=== PATIENT | female | born 1940 | race Hispanic/Latino ===

== ENCOUNTER 2021-05-02 00:25 | Emergency (ER) | payer MEDICARE ==
[2021-05-02] MEDS ORDERED: HYDROcodone/ACETAMINOPHEN 5-325 MG TAB PO ONE ×2 (01:06→02:36)
[2021-05-02] MEDS ORDERED: ONDANSETRON 4 MG ODT TAB PO ONE (01:06)
--- NOTE | 2021-05-02 01:45 | XRay Report ---
Right knee radiograph, 4 views HISTORY: Pain after fall COMPARISON: None FINDINGS: Right total knee arthroplasty projects in expected position. There is no evidence of hardwa re complication. No acute fracture or significant joint capsular distention. Signer Name: Vel Macias MD Signed: 05/02/2021 1:40 AM Workstation Name: [id number]
--- NOTE | 2021-05-02 01:46 | XRay Report ---
Left forearm radiograph, 3 views HISTORY: Pain after fall COMPARISON: None FINDINGS: There is an acute impacted fracture of the radial neck with left elbow joint capsular diste ntion, compatible with hemarthrosis. No additional fracture. Soft tissues are unremarkable. IMPRESSION: Acute left radial neck fracture. Signer Name: Vel Macias MD Signed: 05/02/2021 1:42 AM Workstation Name: [id number]
--- NOTE | 2021-05-02 01:59 | Emergency Department Report ---
ED Fall HPI - General Chief Complaint: Fall Stated Complaint: RT KNEE INJURY Time Seen by Provider: 05/02/21 00:43 Source: patient, EMS Mode of arrival: Stretcher - History of Present Illness Initial Comments: Patient is a 80-year-old female who is presenting status post a fall. She was at her house and she accidentally tripped and fell. Patient fell onto her right knee and tried to brace her fall with her left upper extremity. She has pain mostly at the left elbow. Pain is a 7 out of 10 in severity worse with movement better with rest. She denies any head injury or loss consciousness. 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 - Related Data Previous Rx's Medication Instructions Recorded Last Taken Type HYDROcodone/APAP 5-325 [[facility] 1 each PO Q6HR PRN #14 tablet 05/02/21 Unknown Rx 5/325] Ibuprofen [Motrin 600 MG tab] 600 mg PO Q8H PRN #20 tablet 05/02/21 Unknown Rx Allergies Allergy/AdvReac Type Severity Reaction Status Date / Time pregabalin [From Lyrica] Allergy Unknown Verified 05/02/21 00:52 lodine Allergy Unknown Uncoded 05/02/21 00:52 ED Review of Systems ROS: Stated complaint: RT KNEE INJURY Other details as noted in HPI Comment: All other systems reviewed and negative ED Past Medical Hx - Past Medical History Previous Medical History?: Yes Additional medical history: Parkinson's disease - Surgical History Past Surgical History?: Yes Hx Appendectomy: Yes Additional Surgical History: R knee replacement, back surgery - Social History Smoking Status: Never Smoker Substance Use Type: None - Medications Home Medications: Home Medications Medication Instructions Recorded Confirmed Last Taken Type HYDROcodone/APAP 5-325 [[facility] 1 each PO Q6HR PRN #14 tablet 05/02/21 Unknown Rx 5/325] Ibuprofen [Motrin 600 MG tab] 600 mg PO Q8H PRN #20 tablet 05/02/21 Unknown Rx ED Physical Exam - General Limitations: Physical Limitation General appearance: alert, in no apparent distress - Head Head exam: Present: atraumatic, normocephalic - Eye Eye exam: Present: normal appearance - ENT ENT exam: Present: mucous membranes moist - Neck Neck exam: Present: normal inspection - Respiratory Respiratory exam: Present: normal lung sounds bilaterally. Absent: respiratory distress, wheezes, rales - Cardiovascular Cardiovascular Exam: Present: regular rate, normal rhythm. Absent: systolic murmur, diastolic murmur, rubs, gallop - GI/Abdominal GI/Abdominal exam: Present: soft, normal bowel sounds - Extremities Exam Extremities exam: Present: normal inspection - Expanded Upper Extremity Exam Left Elbow exam: Present: tenderness. Absent: full ROM, deformity Forearm Wrist exam: Present: tenderness. Absent: full ROM (pain w sup/pronation), swelling Hand Wrist exam: Present: full ROM. Absent: tenderness, swelling - Expanded Lower Extremity Exam Right Knee exam: Present: tenderness, swelling, ecchymosis. Absent: full ROM, deformity, dislocation, posterior draw sign - Back Exam Back exam: Present: normal inspection - Neurological Exam Neurological exam: Present: alert, oriented X3 - Psychiatric Psychiatric exam: Present: normal affect, normal mood - Skin Skin exam: Present: warm, dry, intact, normal color. Absent: rash ED Course Vital Signs 05/02/21 05/02/21 00:35 00:56 Temperature 98.2 F Pulse Rate 86 Respiratory 18 19 Rate Blood Pressure 138/70 [Right] O2 Sat by Pulse 98 Oximetry ED Medical Decision Making - Radiology Data [facility] [address] [place] [address] XRay Report Signed Patient: OPHELIA OSMAN MR#: [id number] : 1940 Acct:[id number] Age/Sex: 80 / F ADM Date: 05/02/21 Loc: ED Attending Dr: Ordering Physician: ONEIL CONNELLY MD Date of Service: 05/02/21 Procedure(s): XR forearm LT Accession Number(s): [id number] cc: ONEIL CONNELLY MD Fluoro Time In Minutes: Left forearm radiograph, 3 views HISTORY: Pain after fall COMPARISON: None FINDINGS: There is an acute impacted fracture of the radial neck with left elbow joint capsular distention, compatible with hemarthrosis. No additional fracture. Soft tissues are unremarkable. IMPRESSION: Acute left radial neck fracture. Signer Name: Janina Macias MD Signed: 05/02/2021 1:42 AM Workstation Name: [id number] Transcribed By: JS Dictated By: JANINA MACIAS MD Electronically Authenticated By: JANINA MACIAS MD Signed Date/Time: 05/02/21141 Right knee radiograph, 4 views HISTORY: Pain after fall COMPARISON: None FINDINGS: Right total knee arthroplasty projects in expected position. There is no evidence of hardware complication. No acute fracture or significant joint capsular distention. Signer Name: Janina Macias MD Signed: 05/02/2021 1:40 AM Workstation Name: [id number] Transcribed By: DARRELL Dictated By: JANINA MACIAS MD Electronically Authenticated By: JANINA MACIAS MD Signed Date/Time: 05/02/21139 - Medical Decision Making Patient is 80-year-old female suffered a fall prior to arrival. Is very concerned about her right knee since she has had total knee replacement. Hardware is not intact and there does not appear to be any fractures. There is some bruising likely secondary to is a knee contusion. Lonny wrap will be appropriate. The left elbow does show a radial head fracture. Was placed in a 90 splint and she will be given follow-up with orthopedics Dr. Neville. Given medication for symptomatic relief and she will be discharged home. Critical care attestation.: If time is entered above; I have spent that time in minutes in the direct care of this critically ill patient, excluding procedure time. ED Disposition Clinical Impression: Radial head fracture, closed Qualifiers: Encounter type: initial encounter Fracture alignment: nondisplaced Laterality: left Qualified Code(s): S52.125A - Nondisplaced fracture of head of left radius, initial encounter for closed fracture Contusion of knee, right Qualifiers: Encounter type: initial encounter Qualified Code(s): S80.01XA - Contusion of ri ght knee, initial encounter Disposition: - TO HOME OR SELFCARE Is pt being admited?: No Does the pt Need Aspirin: No Condition: Stable Instructions: Radial Head Fracture, Contusion, [id number], Cast or Splint Care, Adult, [id number] Referrals: LEANNE NEVILLE MD [Staff Physician] - 3-5 Days Time of Disposition: 02:06
[2021-05-02 02:59] VITALS: BP 169/66
== END 2021-05-02 03:00 | disposition home or self-care (01) ==
LOC: ED 00:25
DX: S52.122A Displaced fracture of head of left radius, initial encounter for closed fracture (principal); S80.01XA Contusion of right knee, initial encounter; Z90.49 Acquired absence of other specified parts of digestive tract; Z98.890 Other specified postprocedural states; Z79.1 Long term (current) use of non-steroidal anti-inflammatories (NSAID); Z79.899 Other long term (current) drug therapy; Z88.8 Allergy status to other drugs, medicaments and biological substances; W19.XXXA Unspecified fall, initial encounter; Y93.89 Activity, other specified; Y92.89 Other specified places as the place of occurrence of the external cause; Y99.8 Other external cause status
CPT/HCPCS: Q0162